=== PATIENT | female | born 1995 | race Caucasian/White ===

== ENCOUNTER → 2019-09-29 10:27 | Outpatient (BNVA) | payer BC, SELFPAY | PROVIDERS: Family Provider Registered Nurse; Referring Provider Family Medicine; Visit Provider Orthopaedic Surgery | DX: M79.645 Pain in left finger(s) (principal) | CPT/HCPCS: 73140 ==

== ENCOUNTER 2019-10-29 08:06 | Day surgery (SDC) | payer BC, SELFPAY ==
[2019-10-13 12:56] VITALS: BMI 31.9
--- NOTE | 2019-10-29 08:01 | W.PM.OPSUD ---
Surgery/Procedure H&P Update DATE OF PROCEDURE: October 29, 2019 DATE H&P PERFORMED: 09/29/19 H&P UPDATE INFORMATION: I have reviewed H&P completed within last 30 days, I have examined patient prior to procedure and No changes to prior documentation PREOP DIAGNOSIS: mass left thumb PRIMARY INDICATION FOR PROCEDURE: as above PLANNED PROCEDURE: Operation Date: 10/29/19 09:35 Proposed Procedures p Excision of left thumb mass 78888 R22.32(Left) - Dominic Peña DO
--- NOTE | 2019-10-29 08:02 | P.OP_ITS ---
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 She had complaints of discomfort both on the radial and ulnar aspect of the dorsum of her left thumb. I could palpate the ulnar sided subcutaneous mass had difficulty clinically appreciating the radila side mass. patient stated that the areas of concern were slowly increasing in size. They did not very biting increasing and decreasing in size that might be more suggestive of a ganglion cyst. Plain from radiographs were unremarkable for any calcifications in the soft tissue or bony destruction. No significant arthritis at the interphalangeal joint. The patient risks of surgery include but aren't limited to failure to relieve all pain, possible recurrence of mass particularly for dealing with a giant cell tumor of tendon sheath, possible recurrence of the mass didn't factor not to be a ganglion cyst. There can be wound healing complications that can be nerve/blood vessel/tendon injury. Medical complications can include adverse reaction to anesthetic up to including . All questions were answered patient was agreeable to proceed with surgery. Procedure: 1.5 g Zinacef Patient identified. Surgical site was signed. Surgical permit was signed. The patient received 1.5 g of Zinacef intravenously for surgical prophylaxis. The patient was taken to the operating room. She placed supine on the operative table. Anesthesia team performed a Olu block anesthetic on the operative left upper extremity. The left upper extremity is in sterilely prepped and draped usual fashion. Timeout was performed. Made a transverse incision over the interphalangeal joint of the left thumb. I then extended the incision proximally and distally on either side of the transverse incision full-thickness skin flaps were made. We identified 2 yellowish-brown masses on either side of the extensor pollicis longus tendon. Were able to shell out the masses without difficulty. We used a curette and a rongeur to resect all the tissue of the masses under loupe magnification. We elevated the extensor pollicis longus tendon both on the radial aspect of the ulnar aspect to ensure that there is no residual mass/tumor beneath the tendon. None was observed. The wound was now irrigated with Betadine-containing saline solution and antibiotic containing saline solution. The incision was then closed with 4-0 nylon on skin. A digital block of the thumb was performed with 10 mL of a one-to-one mixture 1% lidocaine and half percent Marcaine plain. Antibiotic was applied followed by sterile dressings and a thumb spica splint was applied with an Marco overwrap. The tourniquet was deflated releasing the local anesthetic that had been placed for the Olu block. The patient tolerated the deflation of the tourniquet without difficulty. She was aroused from sedation taken back to the outpatient surgery area in stable and satisfactory condition she tolerated the procedure well. All counts are correct.
[2019-10-29 08:29] VITALS: BP 107/72; PULSE 76; RESP 20; TEMP 36.6; O2SAT 98; BMI 31.9
--- NOTE | 2019-10-29 08:45 | ANES.PREANE2 ---
Pre-Anesthetic Assessment Pre-Anesthetic Assessment: Height/Weight: Height 1.63 m Weight 84.368 kg Temp Pulse Resp BP Pulse Ox 97.8 F 76 20 H 107/72 98 10/29/19 08:29 10/29/19 08:29 10/29/19 08:29 10/29/19 08:29 10/29/19 08:29 Preop Diagnosis: mass left thumb Proposed Procedure: Operation Date: 10/29/19 09:35 Proposed Procedures p Excision of left thumb mass 14625 R22.32(Left) - Dominic Peña, DO Was Beta Maryjo taken within 24 hours: N/A Last intake: Intake Last Liquid Date 10/28/19 Last Liquid Time 22:00 Last Solid Date 10/28/19 Last Solid Time 22:00 Social: Social History: No alcohol and No tobacco Exam: Pre-Anes Outpt Exam: alert, oriented x 3, clear to auscultation bilaterally and regular rate & rhythm Airway: Submandibular: WNL Cervical ROM: WNL MP: 1 Dentition: Full History/ROS: No significant history except as noted Pulmonary: Pulmonary: None reported CV/HEM: CV/HEM: None reported : : None reported Hepatic: Hepatic: None reported GI: GI: None reported Metabolic: Metabolic: None reported Musc/skel: Musc/skel: None reported Neuropsych: Neuropsych: Depression Anesthetic Plan: ASA status: 1 Anesthesia: MAC PFSH Anesthesia PFSH: Family History Grandmother Diabetes Social History Smoking and tobacco status: never smoked Second hand smoke exposure: No Smoking risk assessment/counseling performed?: No Alcohol intake: never Desire information about alcohol rehabilitation?: No Counseling given: No Desire information about substance/drug rehabilitation?: No Counseling given: No Lives independently: Yes Current gender identity: Female Data Anesthesia Cardiac Studies: No Data to Display
[2019-10-29] MEDS: gabapentin 300 mg Capsule PO (09:03)
[2019-10-29] MEDS: scopolamine 1.5 Patch 1 PATCH TRANSDERMA (09:04)
[2019-10-29] MEDS: ketorolac 30 mg/mL INJ IVP (09:04)
[2019-10-29] MEDS: sodium chloride 0.9% 1,000 ML 30 ML IV (09:05)
[2019-10-29 09:07] LABS: OR HCG Qualitative Urine Negative (Negative)
[2019-10-29] MEDS: cefUROXime 1,500 MG in sodium chloride 0.9% (plus) 50 ML 100 MG IV (09:42)
[2019-10-29] MEDS: neomycin-poly-bacitracin oint 28 gm 1 APPLIC TOPICAL (10:15)
[2019-10-29] MEDS: lidocaine 1% INJ 20 mL SUBCUT (10:44)
[2019-10-29 11:01] VITALS: BP 144/73; PULSE 66; RESP 18; TEMP 36.4; O2SAT 96
[2019-10-29 11:33] VITALS: BP 129/81; PULSE 57; RESP 18; TEMP 37.1; O2SAT 99
== END 2019-10-29 11:51 | disposition home or self-care (01) ==
PROVIDERS: PCP Registered Nurse; Visit Provider Orthopaedic Surgery
PROC: (CPT 26115; principal; 2019-10-29 09:35)
DX: R22.32 Localized swelling, mass and lump, left upper limb (principal)
CPT/HCPCS: 26115; 12345; 81025; 84703; 88307; 96374; J0131; J0697; J1580; J1885; J2001; J2704; J3010; J3490; J7030

== ENCOUNTER → 2020-01-04 15:52 | Outpatient (BNVA) | payer BC, SELFPAY | PROVIDERS: PCP Registered Nurse; Visit Provider Registered Nurse | DX: R11.2 Nausea with vomiting, unspecified (principal) | CPT/HCPCS: 84702 ==

== ENCOUNTER → 2020-03-07 13:44 | Outpatient (BNVA) | payer BC, SELFPAY | PROVIDERS: PCP Registered Nurse; Visit Provider Nurse Practitioner Family | DX: Z20.828 Contact with and (suspected) exposure to other viral communicable diseases (principal); R11.2 Nausea with vomiting, unspecified; R68.83 Chills (without fever); R11.10 Vomiting, unspecified; R53.81 Other malaise | CPT/HCPCS: 87400; 87635 ==

== ENCOUNTER → 2020-03-13 14:32 | Outpatient (BNVA) | payer BC, SELFPAY | PROVIDERS: PCP Registered Nurse; Visit Provider Nurse Practitioner Family | DX: R19.7 Diarrhea, unspecified (principal); R35.0 Frequency of micturition; N92.6 Irregular menstruation, unspecified | CPT/HCPCS: 80053; 81000; 81025; 85025; 87506 ==

== ENCOUNTER → 2020-03-16 08:11 | Outpatient (BNVA) | payer BC, SELFPAY | PROVIDERS: PCP Registered Nurse; Visit Provider Nurse Practitioner Family | DX: R74.8 Abnormal levels of other serum enzymes (principal); R19.7 Diarrhea, unspecified | CPT/HCPCS: 80076; 86705; 86706; 86709; 86803; 87340 ==

== ENCOUNTER 2020-04-11 06:54 | Outpatient (CLI) | payer BC, SELFPAY ==
--- NOTE | 2020-04-11 07:15 | US_ITS ---
WS: [id number] RIGHT UPPER QUADRANT ULTRASOUND HISTORY: R74.8 - Abnormal levels of other serum enzymes COMPARISON: None available. Liver: 13.2 cm in length. Normal size liver. No bile duct dilatation or mass. Gallbladder: Normally distended gallbladder with no stones or wall thickening. CBD: 0.3 cm Pancreas: Normal size and echogenicity. Right kidney: 10.6 cm in length. Normal size and echogenicity. No hydronephrosis or mass. Aorta and IVC: Unremarkable abdominal aorta and IVC. No ascites. US/US gall bladder [id number] IMPRESSION: Normal RIGHT upper quadrant ultrasound.
== END 2020-04-11 06:55 | disposition home or self-care (01) ==
LOC: RAD 06:59
PROVIDERS: PCP Registered Nurse; Visit Provider Nurse Practitioner Family
DX: R74.8 Abnormal levels of other serum enzymes (principal); R10.811 Right upper quadrant abdominal tenderness
CPT/HCPCS: 76705

== ENCOUNTER 2020-09-25 15:26 | Outpatient (CLI) | payer BC, SELFPAY ==
[2020-09-25 15:36] VITALS: RESP 17
[2020-09-25 15:37] VITALS: BMI 37.0
[2020-09-25 15:41] VITALS: BP 130/66; PULSE 107
[2020-09-25 16:00] VITALS: TEMP 36.8
[2020-09-25 16:13] LABS: Actim Prom Negative
[2020-09-25 16:15] LABS: Bilirubin Urine Neg (Negative); Blood Urine Neg (Negative); Glucose Urine UA Norm (Normal); Ketones Urine Negative (Negative); Leukocyte Esterase Urine 2+ (Negative); Nitrate Urine Negative (Negative); Protein Urine Neg (Negative); Urine Appearance SL Hazy (CLEAR); Urine Color Yellow (Yellow); Urobilinogen Urine 1 mg/dL (Negative); pH Urine 5 (5-7)
[2020-09-25 16:18] VITALS: BP 137/61; PULSE 95; TEMP 36.8
[2020-09-25 16:25] LABS: Add Urine Culture? Yes; Bacteria Urine 1+ /hpf; Mucus Urine 1+ /hpf; Squamous Epithelial Cell Urine 0-4 /hpf (0-5); WBC Urine 15-25 /hpf (0-5)
[2020-09-25 18:11] LABS: Nitrazine Paper, PH Inconclusive
== END 2020-09-25 16:35 | disposition home or self-care (01) ==
LOC: OPOB 15:28 → OBGYN 15:36
PROVIDERS: PCP Registered Nurse; Visit Provider Family Medicine
DX: O26.899 Other specified pregnancy related conditions, unspecified trimester (principal); Z3A.00 Weeks of gestation of pregnancy not specified; N89.8 Other specified noninflammatory disorders of vagina
CPT/HCPCS: 81001; 83986; 84112; 87086; 99211

== ENCOUNTER 2020-12-12 23:15 | Observation (INO) | payer BC, SELFPAY ==
[2020-12-12] VITALS (13 sets, daily range): BP systolic 111–137; BP diastolic 57–84; PULSE 94–114; RESP 16; TEMP 36.3; BMI 35.9
[2020-12-12 18:57] LABS: Bacteria Urine 1+ /hpf; Bilirubin Urine Neg (Negative); Blood Urine Neg (Negative); Glucose Urine UA Norm (Normal); Ketones Urine Negative (Negative); Leukocyte Esterase Urine Trace (Negative); Nitrate Urine Negative (Negative); Protein Urine Neg (Negative); RBC Urine 0-4 /hpf (0-2); Specific Gravity, Urine 1.025 (1.005-1.030); Squamous Epithelial Cell Urine 0-4 /hpf (0-5); Urine Appearance SL Hazy (CLEAR); Urine Color Yellow (Yellow); Urobilinogen Urine 1 mg/dL (Negative); pH Urine 5 (5-7)
--- NOTE | 2020-12-12 20:52 | USR_ITS ---
PROCEDURE INFORMATION: Exam: US Biophysical Profile Without Non-Stress Test Exam date and time: 12/12/2020 8:52 PM Age: 25 years old Clinical indication: Abnormal findings; Abnormal lab test; Other: Abnormal heart tones; Third; ; Additional info: Non-reassuring heart tones TECHNIQUE: Imaging protocol: US biophysical profile without non-stress testing. COMPARISON: US OB >= 14 weeks fetus [id number] 08/10/2020 12:21 PM FINDINGS: heart rate: 133 bpm. Presentation: Cephalic presentation. Placenta: Anterior grade 1 placenta. BIOPHYSICAL PROFILE: Breathin/2 Gross body movements: 2/2 tone: 2/2 Qualitative amniotic fluid: 2/2 Biophysical Profile Score: 8/8 MATERNAL ANATOMY: Cervix: The cervix measures 6.7 cm in length and is closed. US/US OB BPP wo NST 18469 IMPRESSION: 1. Normal biophysical profile score of 8/8.
[2020-12-13] VITALS (19 sets, daily range): BP systolic 95–136; BP diastolic 51–67; PULSE 79–105; RESP 17; TEMP 36.1–36.6
[2020-12-13] MEDS: sodium chloride 0.9% 1,000 ML 125 ML IV (00:32)
--- NOTE | 2020-12-13 07:02 | PM.SDS ---
Short Stay Summary Providers Date of Admit/Discharge: 12/13/20 Attending Provider: Brandon Villavicencio MD Primary Care Provider: WOOD Zimmerman Chief Complaint: Contractions HPI History of Present Illness Gabi Ruby is a 25 year old female who is 38 and half weeks . She arrived [facility] OB department yesterday evening with pain. At that time she was found to be a little dehydrated with tachycardia into the 200s. This improved with IV fluid initially but still had some irregular heartbeat issues and the patient began having a little more regular contractions. For that reason, the mom was placed in observation and given intravenous fluids continuously overnight. Overnight, the fetus has done extremely well with very good variability and no significant tachycardia. Mom's contractions have spaced out and are not significant. She does continue to complain of some back pain but otherwise is doing well. She is felt to be stable for discharge home this morning. Review of Systems Const: Denies: fever(s) or chills Card: Denies: chest pain, edema, dyspnea on exertion or orthopnea Resp: Denies: dyspnea, productive cough or non-productive cough GI: Denies: abdominal pain, nausea or vomiting Musc: Reports: back pain; Denies: joint pain Neuro: Denies: headache(s), weakness in extremities or difficulty walking Psych: Denies: anxiety or depression Home Meds/Allergies Home Medications and Allergies Home Medications Medication Instructions Recorded Confirmed Type prenat.vits,jeffrey,war-rwrp-yfdqj 1 tab PO DAILY 09/25/20 12/12/20 History [ Vitamin] Allergies Allergy/AdvReac Type Severity Reaction Status Date / Time hydrocodone Allergy VOMITIMG Verified 03/22/20 08:04 Sulfa (Sulfonamide Allergy HIVES Verified 03/22/20 08:04 Antibiotics) PFSH Acute PFSH: Family History Grandmother Diabetes Social History Smoking and tobacco status: never smoked Second hand smoke exposure: No Smoking risk assessment/counseling performed?: No Alcohol intake: never Desire information about alcohol rehabilitation?: No Counseling given: No Desire information about substance/drug rehabilitation?: No Counseling given: No Lives independently: Yes Current gender identity: Female Female Reproductive History: Date of last menstrual period: 02/15/20 : 3 Vitals/I&O/Wt Last Vital Signs Temp 97.2 F L 12/13/20 05:51 Pulse 105 H 12/13/20 05:59 Resp 16 12/12/20 18:23 BP 115/67 12/13/20 05:59 Weight last 48 hrs Weight 97.976 kg Physical Exam Const: COMMON NORMALS: no acute distress and average body habitus GENERAL APPEARANCE: cooperative and comfortable; not anxious HENMT: COMMON NORMALS: moist oral mucous membranes Resp: COMMON NORMALS: normal respiratory effort, No retractions, No use of accessory muscles and clear to auscultation bilaterally AUSCULTATION: clear to auscultation bilaterally Cardio: COMMON NORMALS: regular rate, regular rhythm and No murmurs present (Cardio) RATE: regular rate RHYTHM: regular rhythm GI: COMMON NORMALS: Normal to inspection, nondistended, normoactive bowel sounds present (She has a gravid uterus.), Soft to palpation and non-tender PALPATION: Yes Soft to palpation Extremity: COMMON NORMALS: normal to inspection, full ROM, capillary refill normal, no calf tenderness and no pedal edema Neuro: COMMON NORMALS: moves all extremities, no focal motor deficits and no sensory deficits noted Psych: COMMON NORMALS: mental status grossly normal, Normal thought process present, cooperative and normal affect THOUGHT PROCESS: Normal thought process present Skin: COMMON NORMALS: no rashes or lesions noted GENERAL SKIN EXAM: no rashes or lesions noted Hospital Course Discharge Summary Patient was seen last evening by this physician and nursing with tachycardia. Her urine was quite concentrated and therefore the patient was placed on intravenous fluids which initially seemed to help heart tones but they still were tachycardic periodically. The patient began having increased contractions and therefore the patient was placed in observation overnight with continued intravenous fluids. Since that time, the patient's contractions have spaced out and not been significant at all. heart tones have done very well overnight with a great rate and good variability with no other problems. She did have a biophysical profile by ultrasound last evening with a score of 8 out of 8. As things are going well at this time she is felt to be stable for discharge home. She will follow up with his physician later this afternoon to discuss things and possibly schedule induction for next week. SSS Data Data Completed and Pending: Completed Studies During Hospitalization Category Date Time Status US OB BPP w o NST 54600 Stat Ultrasound 12/12/20 20:52 Completed Diagnoses at Discharge Discharge Diagnosis (1) tachycardia: Status: Acute (2) 38 weeks gestation of : Status: Acute Discharge Plan Discharge Patient Disposition: Home Condition: Stable Prescriptions: Continued Vitamin Tablet 1 tab PO DAILY RF: 0 Discharge Orders: Discharge Order (Routine); Ordered 12/13/20 Ordered By: Brandon Villavicencio Referrals: Brandon Villavicencio MD [Physician] - (Keep appointment with this physician later on today.) Discharge Diet: Usual diet Discharge Activity: Resume usual activity Patient Instructions: Opioid Safety Attestations Medical Necessity Statement*: This patient required observation stay for tachycardia to rule out other issues including need for urgent delivery and/or active labor ensuing. As things have straightened out and she is doing well she required less than 2 midnight hospital stay. Time Spent in Patient Care*: less than 30 min Specific Discharge Activities: Specific discharge activities: educating patient, educating and/or supporting family/caregiver, documenting/other paperwork and evaluating patient/reviewing data Quality Metrics Clinical Quality Measures: During this hospital stay, did patient experience: None Coding Level of Care Code Acute Counselor Marriage And Family for Chg Fwd Diagnoses tachycardia 38 weeks gestation of Z3A.38
== END 2020-12-13 08:04 | disposition home or self-care (01) ==
PROVIDERS: Admitting Provider Family Medicine; PCP Registered Nurse; Visit Provider Family Medicine
DX: O36.8330 Maternal care for abnormalities of the fetal heart rate or rhythm, third trimester, not applicable or unspecified (principal); Z3A.38 38 weeks gestation of pregnancy; E86.0 Dehydration
CPT/HCPCS: 59025; 76819; 81001; 99211; G0378; J7030

== ENCOUNTER 2020-12-17 08:32 | Inpatient (IN) | payer BC, SELFPAY ==
[2020-12-17] VITALS (57 sets, daily range): BP systolic 101–134; BP diastolic 50–74; PULSE 70–117; RESP 16–20; TEMP 36.6–36.9; O2SAT 99–100; BMI 36.1
[2020-12-17] MEDS: miSOPROStol 100 mcg tablet 25 MCG VAGINAL ×2 (09:18→13:25)
[2020-12-17 09:29] LABS: Basophils % 0.3 %; Eosinophils # 0.1 10^3/uL (0.0-0.8); Eosinophils % 0.8 %; Hematocrit 36.5 % (37.0-47.0); Hemoglobin 11.7 g/dL (11.5-15.3); Lymphocytes # 1.5 10^3/uL (0.8-4.8); Lymphocytes % 24.2 %; Mean Corpuscular HGB Conc 32.1 g/dL (30.0-36.0); Mean Corpuscular Hemoglobin 29.8 pg (28.0-34.0); Mean Corpuscular Volume 92.9 fL (81-99); Mean Platelet Volume 13.2 fL (7.4-10.4); Monocytes # 0.5 10^3/uL (0.2-0.9); Monocytes % 7.5 %; Neutrophils # 4.23 10^3/uL (1.8-7.7); Neutrophils % 66.4 %; Nucleated Red Blood Cells % 0 %; Platelet Count 126 10^3/cmm (130-400); Red Blood Count 3.93 10^6/uL (4.1-5.3); Red Cell Distribution Width 13.2 % (12.1-15.1); White Blood Count 6.4 10^3/uL (4.0-10.0)
[2020-12-17 09:49] LABS: Slide Review Slide Review Perform
--- NOTE | 2020-12-17 13:47 | PM.OPHPUD ---
Labor & Delivery H&P Update Date of Procedure: December 17, 2020 Date H&P Performed: 12/13/20 H&P update information: I have reviewed H&P completed within last 30 days (Patient was seen with tachycardia on 12/12-12/13 for tachycardia. This resolved with IV hydration. A decision was made after evaluation and discussion with patient to proceed with induction of labor at 39 weeks.) Admission Diagnosis: Preop diagnosis: 39 weeks intrauterine Primary indication for procedure: term with history of tachycardia. Planned procedure: Induction of labor with misoprostel cervical ripening and possible pitocin augmentation with planned vaginal delivery. Related Problem List Diagnoses (1) Term :
[2020-12-17] MEDS: lactated ringers 1,000 ML 999 ML IV (17:56)
--- NOTE | 2020-12-17 18:47 | ANES.PREANE2 ---
Pre-Anesthetic Assessment Pre-Anesthetic Assessment: Height/Weight: Height 1.65 m Weight 98.43 kg Temp Pulse Resp BP 98.1 F 84 18 109/63 12/17/20 16:31 12/17/20 18:44 12/17/20 16:31 12/17/20 18:44 Preop Diagnosis: 39 weeks intrauterine Proposed Procedure: epidural Familial anesthetic complications: none Was Beta Maryjo taken within 24 hours: N/A Was Clonidine taken within 24 hours: N/A Social: Social History: No alcohol and No tobacco Exam: Pre-Anes Outpt Exam: alert, oriented x 3, clear to auscultation bilaterally and regular rate & rhythm Airway: Submandibular: WNL Cervical ROM: WNL MP: 2 Dentition: Full Pulmonary: Pulmonary: None reported CV/HEM: CV/HEM: None reported : : None reported Hepatic: Hepatic: None reported GI: GI: None reported Metabolic: Metabolic: None reported Musc/skel: Musc/skel: None reported Neuropsych: Neuropsych: MARTIN Anesthetic Plan: ASA status: 2 Anesthesia: Regional (specify below) Risk of > 500 ml blood loss (7ml/kg in children): No Meds/Allergies Current Medications: Current Medications Generic Name Dose Route Start Last Admin Trade Name Freq PRN Reason Stop Dose Admin Lactated Ringer's 1,000 mls @ 999 m ls/hr 12/17/20 17:41 12/17/20 17:56 Lactated Ringers IV 999 mls/hr .Q1H1M PRN Administration See label comment s PFSH Anesthesia PFSH: Family History Grandmother Diabetes Social History Smoking and tobacco status: never smoked Second hand smoke exposure: No Smoking risk assessment/counseling performed?: No Alcohol intake: never Desire information about alcohol rehabilitation?: No Counseling given: No Desire information about substance/drug rehabilitation?: No Counseling given: No Lives independently: Yes Current gender identity: Female Female Reproductive History: Date of last menstrual period: 02/15/20 : 3 Data Anesthesia CBC & Chem 7: 12/17/20 08:30 Other Labs: Laboratory Results - last 48 hr 12/17/20 08:30 WBC 6.4 RBC 3.93 L Hgb 11.7 Hct 36.5 L MCV 92.9 MCH 29.8 MCHC 32.1 RDW 13.2 Plt Count 126 L MPV 13.2 H Neut % (Auto) 66.4 Lymph % (Auto) 24.2 [place] % (Auto) 7.5 Eos % (Auto) 0.8 Baso % (Auto) 0.3 Neut # (Auto) 4.23 Lymph # (Auto) 1.5 [place] # (Auto) 0.5 Eos # (Auto) 0.1 Baso # (Auto) 0.0 Nucleated RBC % (auto) 0 Nucleated RBCs # 0.0 Cardiac Studies: No Data to Display
--- NOTE | 2020-12-17 19:19 | ANES.PROC ---
Anesthesia Procedures Procedure/Date: 12/17/20 epidural Procedure Narrative: epidural complete, bolus given, epidural pump initiated with ATHLETICS TEACHER education given, vitals taken during procedure using OBIX system and satisfactory throughout, patient admits to decrease pain, report of procedure to OB RN Epidural: Time Out Performed: Yes Consents Signed: Procedure Consent Consent: requested by attending/covering physician, from patient, risks and benefits reviewed and patient agrees to proceed Lumbar Level: L3-L4 Epidural position: sitting Epidural procedure: sterile prep of area, 1% lidocaine to numb the area (3 mL), 18 g needle, negative for paresthesia passed, neg for paresthesia, test dose given, 1.5% xylocaine 1:200k epi (5 mL), 0.2% Ropivacaine bolus ml (5 mL), placed PCEA, no systemic response, sterile dressing applied, L.U.D. no apparent complications and 0.2% Ropiavacaine @ mls/hr (13 mL/hr)
[2020-12-18] VITALS (87 sets, daily range): BP systolic 95–144; BP diastolic 51–116; PULSE 63–99; RESP 16–18; TEMP 36.3–36.8; O2SAT 96–99
[2020-12-18] MEDS: oxytocin 30 UNIT/500 ML BAG IV
[2020-12-18] MEDS: dextrose 5%-lactated ringers 1,000 ML 125 ML IV ×2 (03:02→11:05)
[2020-12-18] MEDS: acetaminophen 325 mg Tablet 650 MG PO (06:29)
--- NOTE | 2020-12-18 07:35 | PM.ACPR ---
Procedure/Consent Procedure Narrative: Patient was making slow progress at 4 cm dilated. She had a bulging bag of water therefore artificial rupture of membranes was performed with a large amount of clear fluid obtained. There were no complications.
--- NOTE | 2020-12-18 10:29 | PM.DELIVERY ---
Delivery Note: Date of delivery: December 18, 2020 this 25-year-old 3 now para 3 female at 29 weeks and 1 days gestation was admitted yesterday for induction secondary to some tachycardia and term . She was given 2 doses of misoprostel 25 mcg yesterday followed by Pitocin augmentation overnight. She did receive epidural anesthesia as she was making change. She was still about 4 cm dilated this morning and underwent artificial rupture membranes with moderate clear fluid obtained this morning. Over the next 2-1/2 hours she dilated fairly rapidly to complete cervical dilatation and was able to begin pushing and within 7 or 8 minutes she delivered a healthy, viable female infant at 1010. The 's head delivered at UMA position with mouth and nose suctioned at the perineum followed by rotation of the shoulders and delivery of the left shoulder first followed by the right shoulder. The was then suctioned again and laid on mother's abdomen where after approximately 1 minute the umbilical cord was clamped and then cut by the 's father. There was no nuchal cord and the cord had 3 blood vessels. Apgars were 6 8 and 9 at 1 and 5 minutes respectively and the weighed 7 pounds 1 ounce. The placenta delivered spontaneously at 1014 and appeared to be intact. There was some mild bleeding but that slowed with fundal massage and Pitocin intravenously. There was one small right periurethral laceration which did not require repair and no other lacerations were problems. There was no complications and estimated blood loss was approximately 164 mL. Pre-Delivery Course: This patient was followed through her course by this physician. Her maternal blood type was AB+ with antibody screen negative. Hepatitis B and C were negative. RPR and HIV were negative. Rubella is immune and group B strep was negative as was Covid. She did discuss with this physician and Dr. Espinoza her desire for tubal ligation and she continues to request that and will be referred to Dr. Schwarz for follow-up tubal ligation hopefully. Delivery: Spontaneous vaginal delivery. Post-Delivery Status: Patient is doing well will be followed for routine care. Plan probable tubal ligation by Dr. Schwarz. A&P Assessment and plan (1) Term : Patient is doing well as stated above and will be followed for routine care. Status: Acute Coding Level of Care Code Acute Technical Specialist for Chg Fwd Diagnoses Term Z34.90
[2020-12-18] MEDS: oxytocin 30 UNIT/500 ML BAG 999 UNIT IV (10:55)
[2020-12-18] MEDS: benzocaine-menthol 78 gm Canister 1 SPRAY TOPICAL (12:59)
--- NOTE | 2020-12-18 13:00 | PC.NURSE ---
Pt ambulated to bathroom at this time with no difficulties. Pt voided, edison care performed and linens changed.
--- NOTE | 2020-12-18 15:46 | P.ANESUD_ITS ---
Pre-Anesthetic Update Pre-Anesthetic Assessment: Date of Surgery/Procedure: 12/18/20 Preop Chrissie gnosis: 39 weeks intrauterine Proposed Procedure: Operation Date: 12/18/20 16:30 Proposed Procedures p Bilateral Tubal Ligation(Not Applicable) - Theresa Schwarz MD Any changes to Pre-Anesthetic Assessment?: Yes Changes from Pre-Anesthetic Assessment: patient is , Labs Last 48hrs: Laboratory Results - last 48 hr 12/17/20 08:30 WBC 6.4 RBC 3.93 L Hgb 11.7 Hct 36.5 L MCV 92.9 MCH 29.8 MCHC 32.1 RDW 13.2 Plt Count 126 L MPV 13.2 H Neut % (Auto) 66.4 Lymph % (Auto) 24.2 [place] % (Auto) 7.5 Eos % (Auto) 0.8 Baso % (Auto) 0.3 Neut # (Auto) 4.23 Lymph # (Auto) 1.5 [place] # (Auto) 0.5 Eos # (Auto) 0.1 Baso # (Auto) 0.0 Nucleated RBC % (a uto) 0 Nucleated RBCs # 0.0 Vitals: Temperature 97.7 F 12/18/20 10:30 Temperature Source Temporal Artery S can 12/18/20 10:30 Pulse Rate 75 12/18/20 15:31 Pulse Rhythm 12/17/20 10:41 Pulse Strength 3+ Normal 12/17/20 20:00 Respiratory Rate 18 12/17/20 16:31 Respiratory Effort Non-Labored 12/17/20 10:41 Respiratory Depth Normal 12/17/20 10:41 Respiratory Patter n 12/17/20 20:00 Blood Pressure 118/66 12/18/20 15:31 Pulse Oximetry 100 12/17/20 19:57 Oxygen Delivery Me thod 12/17/20 10:41 Exam: Pre-Anes Outpt Exam: alert, oriented x 3, clear to auscultation bilaterally and regular rate & rhythm Other Pertinent Information: Other Pertinent Information: Epidural still in place Cardiac Studies: No Data to Display
--- NOTE | 2020-12-18 16:18 | PC.NURSE ---
MERCY Castillo from OR took pt to Pre-op via wheelchair at this time.
[2020-12-18] MEDS: sodium chloride 0.9% 1,000 ML 30 ML IV (17:26)
--- NOTE | 2020-12-18 17:50 | PM.OPHPUD ---
Labor & Delivery H&P Update Date of Procedure: December 18, 2020 Date H&P Performed: 12/18/20 Admission Diagnosis: Preop diagnosis: 39 weeks intrauterine Planned procedure: Operation Date: 12/18/20 16:30 Proposed Procedures p Bilateral Tubal Ligation(Not Applicable) - Theresa Schwarz MD
--- NOTE | 2020-12-18 18:44 | PM.OP ---
Operative Report Date of procedure: December 18, 2020 Pre-op Diagnosis: Desired permanent surgical sterilization Post-op diagnosis: same Procedure Done: bilateral tubal ligation Pathology: Segments of right and left fallopian tubes Surgeon: Theresa Schwarz Anesthesia: Epidural Estimated blood loss (mL): 5 IV fluids (mL): 600 Complications: None Condition: stable Disposition: PACU Procedure: After informed consent the patient was taken to the OR where she was prepped and draped in normal sterile fashion in dorsal supine position. After adequate epidural anesthesia was verified an infraumbilical curvilinear incision was made and carried through to the underlying layer of fascia bluntly using a hemostat. The fascia was then grasped with Allis clamps and the fascia was entered sharply using the Metzenbaums. The peritoneum was then entered digitally. The left fallopian tube was then grasped with a Amber and a midportion of the tube was ligated and excised. The cut portions of the tube were coagulated using the Bovie. Tubal ostia were identified. A portion of the tube was sent to pathology. After adequate hemostasis was obtained the cut portions of the tube were returned to the abdomen. The right fallopian tube was then grasped with a Amber and brought into the operative field. A midportion of the tube was ligated and excised. Specimen was sent to pathology. Tubal ostia were identified. Cut portions of the tube were coagulated using the Bovie. After hemostasis was obtained the cut portions of the tube were returned to the abdomen. The fascia and peritoneum was then reapproximated using 2-0 Vicryl in a running fashion. The skin was then reapproximated using 4-0 Vicryl in a running fashion. Steri-Strips and a pressure bandage were applied and patient went to recovery in stable condition..
--- NOTE | 2020-12-18 19:14 | SUR.PHASEI ---
1856 PATIENT TO OB AT THIS TIME. A/OX3. DENIES PAIN.
--- NOTE | 2020-12-18 19:15 | PC.NURSE ---
Pt brought up from PACU on gurney and transferred to labor bed. Pt legs are still numb from spinal.
[2020-12-18] MEDS: ketorolac 30 mg/mL INJ IVP (19:19)
--- NOTE | 2020-12-18 19:35 | ANE.PACU2 ---
Inpatient post-anesthesia follow up: Airway intact: Yes Vital signs: Temperature 97.4 F Pulse Rate 73 Respiratory Rate 16 Blood Pressure 116/78 Pulse Oximetry 97 Oxygen Delivery Me thod Room Air Oxygen Flow Rate Fraction of Inspir ed Oxygen Hydration adequate: Yes Nausea and vomiting: No Pain level: 2 Mental status: Baseline
[2020-12-19] VITALS (7 sets, daily range): BP systolic 104–123; BP diastolic 55–73; PULSE 57–83; RESP 18; TEMP 36.9; O2SAT 98
[2020-12-19 00:04] LABS: Hematocrit 35.9 % (37.0-47.0); Hemoglobin 11.4 g/dL (11.5-15.3); Mean Corpuscular HGB Conc 31.8 g/dL (30.0-36.0); Mean Corpuscular Hemoglobin 30.2 pg (28.0-34.0); Mean Platelet Volume 13.6 fL (7.4-10.4); Platelet Count 118 10^3/cmm (130-400); Red Blood Count 3.78 10^6/uL (4.1-5.3); Red Cell Distribution Width 13.3 % (12.1-15.1); White Blood Count 10.1 10^3/uL (4.0-10.0)
--- NOTE | 2020-12-19 02:07 | PC.NURSE ---
Epidural catheter removed from insertion site in OR
--- NOTE | 2020-12-19 07:56 | PM.OBGYDC ---
Discharge Providers COST CONTROL ANALYST Date of Admission: 12/17/20 08:32 Date of Discharge: 12/19/20 Attending Provider at Admission: Brandon Villavicencio MD Attending Provider at Discharge: Brandon Villavicencio MD Primary Care Provider: WOOD Zimmerman Diagnoses at Discharge Discharge Diagnosis (1) Term : Status: Acute Reason for Visit Reason for Visit: Elective Induction Hospital Course Hospital Course Patient was admitted Friday morning for induction of term at 39 weeks gestation. Reason for induction was tachycardia. Patient was given 2 doses of misoprostol 25 mcg followed by Pitocin augmentation. She delivered yesterday morning after artificial rupture membranes. There was no problems with the labor and delivery process. She has done extremely well which is mild lochia. She did have a tubal ligation by Dr. Schwarz at her request. She has just mildly sore from that with minimal lochia and no other problems. She is ambulating well and tolerating regular diet and is felt to be stable for discharge. Information Peripartum Data: Infant Delivery Method: Vaginal Physical Exam Const: COMMON NORMALS: no acute distress, healthy appearing and well nourished HENMT: COMMON NORMALS: moist oral mucous membranes Resp: COMMON NORMALS: normal respiratory effort, No use of accessory muscles and clear to auscultation bilaterally AUSCULTATION: clear to auscultation bilaterally Cardio: COMMON NORMALS: regular rate, regular rhythm and No murmurs present (Cardio) RATE: regular rate RHYTHM: regular rhythm GI: COMMON NORMALS: Normal to inspection, nondistended, normoactive bowel sounds present, Soft to palpation and non-tender PALPATION: Yes Soft to palpation Extremity: COMMON NORMALS: normal to inspection and no pedal edema Neuro: COMMON NORMALS: no focal motor deficits and no sensory deficits noted Psych: COMMON NORMALS: mental status grossly normal, cooperative and normal affect Skin: COMMON NORMALS: no rashes or lesions noted GENERAL SKIN EXAM: no rashes or lesions noted Urinary Catheter Management^: Bentley: Cath Placed During This Visit: yes, but has since been removed by the nurse Reason for Continuing Indwelling Catheter: Decision to DC Catheter Urinary Catheter Date of Insertion: 12/17/20 Urinary Catheter Time of Insertion: 19:45 Date Urinary Catheter Removed: 12/18/20 Time Urinary Catheter Discontinued: 09:54 Discharge Data Data Completed and Pending: Pending at discharge Category Date Time Status Pathology: Surgic al [PTH] Routine Pth 12/18/20 18:31 Ordered Labs from last 24 hours 12/18/20 23:01 WBC 10.1 H RBC 3.78 L Hgb 11.4 L Hct 35.9 L MCV 95.0 MCH 30.2 MCHC 31.8 RDW 13.3 Plt Count 118 L MPV 13.6 H Vitals: Last Vital Signs Temp 98.4 F 12/19/20 04:29 Pulse 57 L 12/19/20 07:47 Resp 16 12/18/20 18:55 BP 114/67 12/19/20 07:47 Pulse Ox 98 12/19/20 04:22 Discharge Plan Discharge Patient Disposition: Home Condition: Stable Prescriptions: New ibuprofen 800 mg tablet 800 mg PO Q8H PRN (Reason: pain) Qty: 90 RF: 1 docusate sodium 100 mg Capsule 100 mg PO BID Qty: 60 RF: 1 Continued prenat.vits,jeffrey,[id number] Tablet 1 tab PO DAILY RF: 0 Discharge Orders: Discharge Order (Routine); Ordered 12/19/20 Ordered By: Brandon Villavicencio Referrals: Theresa Schwarz MD [Physician] - 4-7 days Brandon Villavicencio MD [Physician] - 6 Weeks Discharge Diet: Usual diet Discharge Activity: Resume usual activity Patient Instructions: Opioid Safety Discharge Attestations COST CONTROL ANALYST Time Spent in Discharge Care*: less than 30 min Specific Discharge Activities: Specific discharge activities: educating patient, documenting/other paperwork and evaluating patient/reviewing data Coding Level of Care Code Acute Computer Patternmaker for Chg Fwd Diagnoses Term Z34.90
[2020-12-19] MEDS: docusate sodium 100 mg Capsule PO (09:16)
[2020-12-19] MEDS: prenatal vitamin Capsule 1 CAP PO (09:16)
--- NOTE | 2020-12-19 09:51 | PC.NURSE ---
BRUISING AROUND UMBILICUS AREA FROM TUBAL. STERISTRIPS REPLACED AND INSTRUCTIONS GIVEN ON CARE. NO DRAINAGE AND INCISION IS INTACT.
== END 2020-12-19 11:00 | disposition home or self-care (01) | DRG 798 ==
LOC: OPOB 08:33 → OBGYN 08:33
PROVIDERS: Family Medicine; Admitting Provider Family Medicine; PCP Registered Nurse; Visit Provider Family Medicine
PROC: 0UB70ZZ Excision of Bilateral Fallopian Tubes, Open Approach (ICD-10-PCS; CPT 58605; principal; 2020-12-18 16:30)
DX: O76 Abnormality in fetal heart rate and rhythm complicating labor and delivery (principal); Z37.0 Single live birth; Z3A.39 39 weeks gestation of pregnancy; Z30.2 Encounter for sterilization
CPT/HCPCS: 36415; 51702; 59025; 59409; 85025; 85027; 88302; 96374; 96375; 99211; J1100; J1885; J2405; J2704; J2795; J3010; J7030

== ENCOUNTER → 2021-05-15 14:24 | Outpatient (BNVA) | payer BC, SELFPAY | PROVIDERS: PCP Registered Nurse; Visit Provider Registered Nurse | DX: Z20.822 Contact with and (suspected) exposure to COVID-19 (principal); R68.89 Other general symptoms and signs; J20.8 Acute bronchitis due to other specified organisms | CPT/HCPCS: 87400; 87635 ==

== ENCOUNTER → 2024-01-20 11:24 | Outpatient (BNVA) | payer BC, SELFPAY | PROVIDERS: PCP Registered Nurse; Visit Provider Registered Nurse | DX: Z01.419 Encounter for gynecological examination (general) (routine) without abnormal findings (principal) | CPT/HCPCS: 88175 ==

== ENCOUNTER → 2024-12-09 07:27 | Outpatient (BNVA) | payer OTHER, BC, SELFPAY | PROVIDERS: PCP Registered Nurse; Referring Provider Nurse Practitioner Acute Care; Visit Provider Podiatrist Foot & Ankle Surgery | DX: M79.671 Pain in right foot (principal); M72.2 Plantar fascial fibromatosis | CPT/HCPCS: 73630 ==